=== PATIENT | female | born 1960 | race Caucasian/White ===

== ENCOUNTER 2018-03-07 05:42 | Inpatient (IN) | payer MEDICARE ==
[~2018-03-07] VITALS: Ht 165.1 cm; Wt 57.0 kg
[2018-03-07] VITALS (668 sets, daily range): BP systolic 128–139; BP diastolic 77–94; PULSE 87–93; TEMP 98.2–99.2; O2SAT 82–100
[2018-03-07 06:09] LABS: BASO % 0.5 % (0.0-2.0); GRAN # 3.3 (1.4-6.5); GRAN % 59.5 % (42.2-75.2); LYMPH # 1.6 (1.2-3.4); LYMPH % 29.2 % (20.0-51.0); MEAN CELL VOLUME 83 fl (80.0-100.0); MEAN CORPUSCULAR HGB CONC 30 g/dl (33.0-37.0); MEAN PLATELET VOLUME 10.3 fl (7.4-10.4); MONO # 0.6 (0.1-0.6); MONO % 10.4 % (1.7-9.3); PLATELET COUNT 165 K/mm3 (130-400); RED BLOOD COUNT 7.72 M/mm3 (4.10-5.30); REDCELL DISTRIBUTION WIDTH-CV 21.8 % (11.5-14.5)
[2018-03-07] MEDS ORDERED: COUMADIN 6MG6 MG/TAB PO (06:12)
[2018-03-07 06:13] LABS: HEMOGLOBIN 19.2 g/dl (12.5-16.0); MEAN CORPUSCULAR HEMOGLOBIN 25 pg (27.0-31.0)
[2018-03-07] MEDS ORDERED: LASIX 20MG TABL20 MG PO (06:13)
[2018-03-07] MEDS ORDERED: CYMBALTA 60MG60 MG PO (06:13)
[2018-03-07] MEDS ORDERED: PHENERGAN 25 TA25 MG PO (06:14)
[2018-03-07] MEDS ORDERED: CATAPRES0.2 MG PO (06:14)
[2018-03-07] MEDS ORDERED: NEURONTIN400 MG/CAP PO (06:15)
[2018-03-07] MEDS ORDERED: OXYCONTIN60 MG PO (06:16)
[2018-03-07] MEDS ORDERED: PERCOCET 325 MG1 TAB PO (06:16)
[2018-03-07] MEDS ORDERED: SOMA250 MG PO (06:17)
[2018-03-07 06:23] LABS: ALANINE AMINOTRANSFERASE 31 U/L (9-52); ALBUMIN 3.8 gm/dL (3.5-5.0); ALKALINE PHOSPHATASE 100 U/L (50-136); AST,SGOT 34 U/L (15-37); BILIRUBIN,TOTAL 1.4 mg/dL (0.0-1.0); BLOOD UREA NITROGEN 19 mg/dL (7-17); CALCIUM 9.1 mg/dL (8.4-10.2); CHLORIDE 95 mmol/L (98-107); CREATININE, serum 0.62 mg/dL (0.52-1.25); GLUCOSE 111 mg/dL (74-106); POTASSIUM 3.6 mmol/L (3.4-5.0); SODIUM 143 mmol/L (137-145); TOTAL PROTEIN 6.7 gm/dL (6.4-8.2)
[2018-03-07 06:26] LABS: ARTERIAL BLD GAS TCO2 CT 41
[2018-03-07 06:33] LABS: ANION GAP 5 mmol/L (7-16); CARBON DIOXIDE 43 mmol/L (22-30)
[2018-03-07 06:35] LABS: TROPONIN-I < 0.012 ng/mL (0.000-0.034)
[2018-03-07 06:43] LABS: INR 2.4 (0.8-3.0); PROTHROMBIN TIME 27.7 SECONDS (9.7-12.8)
[2018-03-07 07:16] LABS: THYROID STIMULATING HORMONE 0.984 uIU/mL (0.465-4.680)
[2018-03-07 16:28] LABS: ARTERIAL BLD GAS O2 SATURATION 85.2 % (92-100); ARTERIAL BLD GAS TCO2 CT 35.7; ARTERIAL BLOOD GAS HCO3 34.3 meq/L (22-26); ARTERIAL BLOOD GAS PCO2 43.5 mmHg (35-45); ARTERIAL BLOOD GAS pH 7.52 (7.35-7.45)
[2018-03-07 16:30] LABS: ARTERIAL BLOOD GAS PO2 46.6 mmHg (80-100)
[2018-03-07 17:08] LABS: CALCIUM 8.5 mg/dL (8.4-10.2); CREATININE, serum 0.49 mg/dL (0.52-1.25); MAGNESIUM 1.5 mg/dL (1.6-2.3); PHOSPHOROUS 3.3 mg/dL (2.5-4.5); POTASSIUM 3.2 mmol/L (3.4-5.0)
[2018-03-07] MEDS ORDERED: ZYRTEC5 MG PO (21:05)
[2018-03-08] VITALS (1005 sets, daily range): BP systolic 133–154; BP diastolic 83–105; PULSE 88–97; TEMP 98.2–99.2; O2SAT 80–97
[2018-03-08 05:31] LABS: ARTERIAL BLD GAS O2 SATURATION 88.6 % (92-100); ARTERIAL BLD GAS TCO2 CT 33.7; ARTERIAL BLOOD GAS BASE EXCESS 9.5 (-2-2); ARTERIAL BLOOD GAS HCO3 32.5 meq/L (22-26); ARTERIAL BLOOD GAS PCO2 38.1 mmHg (35-45); ARTERIAL BLOOD GAS PO2 50.7 mmHg (80-100); ARTERIAL BLOOD GAS pH 7.55 (7.35-7.45)
[2018-03-08 05:37] LABS: BASO % 0.2 % (0.0-2.0); GRAN # 4.1 (1.4-6.5); GRAN % 77.8 % (42.2-75.2); HEMATOCRIT 58.5 % (37.0-47.0); LYMPH # 0.8 (1.2-3.4); LYMPH % 15.5 % (20.0-51.0); MEAN CELL VOLUME 80 fl (80.0-100.0); MEAN CORPUSCULAR HEMOGLOBIN 25 pg (27.0-31.0); MEAN CORPUSCULAR HGB CONC 31 g/dl (33.0-37.0); MEAN PLATELET VOLUME 9.9 fl (7.4-10.4); MONO # 0.3 (0.1-0.6); MONO % 5.7 % (1.7-9.3); PLATELET COUNT 148 K/mm3 (130-400); REDCELL DISTRIBUTION WIDTH-CV 21.2 % (11.5-14.5)
[2018-03-08 05:49] LABS: ALBUMIN 3.3 gm/dL (3.5-5.0); BILIRUBIN,TOTAL 1.5 mg/dL (0.0-1.0); CALCIUM 8.9 mg/dL (8.4-10.2); CREATININE, serum 0.5 mg/dL (0.52-1.25); MAGNESIUM 1.9 mg/dL (1.6-2.3); PHOSPHOROUS 2.6 mg/dL (2.5-4.5); POTASSIUM 3.7 mmol/L (3.4-5.0); TOTAL PROTEIN 5.8 gm/dL (6.4-8.2)
[2018-03-08 05:54] LABS: INR 1.8 (0.8-3.0)
[2018-03-09] VITALS (296 sets, daily range): BP systolic 132–151; BP diastolic 68–102; PULSE 95–100; TEMP 98.3–99; O2SAT 90–98
[2018-03-09 05:53] LABS: BASO % 0.1 % (0.0-2.0); GRAN # 7.4 (1.4-6.5); GRAN % 88.4 % (42.2-75.2); LYMPH # 0.7 (1.2-3.4); LYMPH % 7.8 % (20.0-51.0); MEAN CELL VOLUME 80 fl (80.0-100.0); MEAN CORPUSCULAR HGB CONC 30 g/dl (33.0-37.0); MEAN PLATELET VOLUME 9.5 fl (7.4-10.4); MONO # 0.3 (0.1-0.6); PLATELET COUNT 155 K/mm3 (130-400); RED BLOOD COUNT 7.86 M/mm3 (4.10-5.30)
[2018-03-09 06:02] LABS: ARTERIAL BLD GAS O2 SATURATION 93.5 % (92-100); ARTERIAL BLD GAS TCO2 CT 27.6; ARTERIAL BLOOD GAS BASE EXCESS 3.6 (-2-2); ARTERIAL BLOOD GAS HCO3 26.5 meq/L (22-26); ARTERIAL BLOOD GAS PCO2 35.3 mmHg (35-45); ARTERIAL BLOOD GAS PO2 65.1 mmHg (80-100); ARTERIAL BLOOD GAS pH 7.49 (7.35-7.45)
[2018-03-09 06:14] LABS: HEMATOCRIT 62.6 % (37.0-47.0); MEAN CORPUSCULAR HEMOGLOBIN 24 pg (27.0-31.0)
[2018-03-09 06:17] LABS: CREATININE, serum 0.52 mg/dL (0.52-1.25); MAGNESIUM 1.9 mg/dL (1.6-2.3); PHOSPHOROUS 3.6 mg/dL (2.5-4.5); POTASSIUM 3.6 mmol/L (3.4-5.0)
[2018-03-10 01:33] VITALS: BP 129/85; PULSE 96; TEMP 98.5
[2018-03-10 05:34] VITALS: PULSE 90
[2018-03-10 06:10] LABS: BASO % 0.1 % (0.0-2.0); GRAN # 9.2 (1.4-6.5); GRAN % 86.7 % (42.2-75.2); LYMPH # 0.8 (1.2-3.4); LYMPH % 7.6 % (20.0-51.0); MEAN CELL VOLUME 80 fl (80.0-100.0); MEAN CORPUSCULAR HGB CONC 31 g/dl (33.0-37.0); MEAN PLATELET VOLUME 9.8 fl (7.4-10.4); MONO # 0.5 (0.1-0.6); PLATELET COUNT 156 K/mm3 (130-400); RED BLOOD COUNT 8.43 M/mm3 (4.10-5.30); REDCELL DISTRIBUTION WIDTH-CV 22.2 % (11.5-14.5)
[2018-03-10 06:14] LABS: HEMOGLOBIN 20.8 g/dl (12.5-16.0); MEAN CORPUSCULAR HEMOGLOBIN 25 pg (27.0-31.0)
[2018-03-10 06:29] LABS: CREATININE, serum 0.52 mg/dL (0.52-1.25); PHOSPHOROUS 3.9 mg/dL (2.5-4.5); POTASSIUM 3.5 mmol/L (3.4-5.0)
[2018-03-10 07:00] VITALS: BP 135/91; PULSE 90; TEMP 97.8
[2018-03-10 09:29] LABS: INR 1.3 (0.8-3.0); PROTHROMBIN TIME 15.1 SECONDS (9.7-12.8)
[2018-03-10] MEDS ORDERED: ASPIRIN 81M81 MG/TA2 PO (10:14)
[2018-03-10 11:11] VITALS: BP 141/93; PULSE 100; TEMP 97.6
[2018-03-10 11:42] LABS: ARTERIAL BLD GAS O2 SATURATION 93.5 % (92-100); ARTERIAL BLD GAS TCO2 CT 26.2; ARTERIAL BLOOD GAS BASE EXCESS 1.3 (-2-2); ARTERIAL BLOOD GAS PCO2 37.6 mmHg (35-45); ARTERIAL BLOOD GAS PO2 66.1 mmHg (80-100); ARTERIAL BLOOD GAS pH 7.44 (7.35-7.45)
[2018-03-10 15:16] VITALS: BP 132/88; PULSE 91; TEMP 98.6
[2018-03-10 19:26] VITALS: BP 139/93; PULSE 93; TEMP 99.3
[2018-03-11 00:23] VITALS: BP 133/78; PULSE 96; TEMP 98.1
[2018-03-11 03:29] VITALS: BP 133/86; PULSE 92; TEMP 98
[2018-03-11 04:59] VITALS: BP 153/94; PULSE 94; TEMP 97.4
[2018-03-11 05:29] LABS: ARTERIAL BLD GAS O2 SATURATION 91.9 % (92-100); ARTERIAL BLD GAS TCO2 CT 25.4; ARTERIAL BLOOD GAS BASE EXCESS 0.1 (-2-2); ARTERIAL BLOOD GAS HCO3 24.2 meq/L (22-26); ARTERIAL BLOOD GAS PCO2 38.3 mmHg (35-45); ARTERIAL BLOOD GAS PO2 60.7 mmHg (80-100); ARTERIAL BLOOD GAS pH 7.42 (7.35-7.45)
[2018-03-11 05:37] LABS: BASO % 0.1 % (0.0-2.0); GRAN # 9.5 (1.4-6.5); GRAN % 86.4 % (42.2-75.2); LYMPH # 0.7 (1.2-3.4); LYMPH % 6.4 % (20.0-51.0); MEAN CELL VOLUME 81 fl (80.0-100.0); MEAN CORPUSCULAR HGB CONC 30 g/dl (33.0-37.0); MEAN PLATELET VOLUME 9.2 fl (7.4-10.4); MONO # 0.7 (0.1-0.6); MONO % 6.6 % (1.7-9.3); PLATELET COUNT 144 K/mm3 (130-400); RED BLOOD COUNT 8.34 M/mm3 (4.10-5.30); REDCELL DISTRIBUTION WIDTH-CV 22.1 % (11.5-14.5)
[2018-03-11 05:41] LABS: HEMATOCRIT 67.4 % (37.0-47.0); HEMOGLOBIN 20.3 g/dl (12.5-16.0); MEAN CORPUSCULAR HEMOGLOBIN 24 pg (27.0-31.0)
[2018-03-11 05:52] LABS: CALCIUM 8.9 mg/dL (8.4-10.2); CREATININE, serum 0.55 mg/dL (0.52-1.25); MAGNESIUM 2.2 mg/dL (1.6-2.3); PHOSPHOROUS 3.9 mg/dL (2.5-4.5); POTASSIUM 4.2 mmol/L (3.4-5.0)
[2018-03-11 05:58] LABS: INR 1.5 (0.8-3.0); PROTHROMBIN TIME 17.1 SECONDS (9.7-12.8)
[2018-03-11 07:47] VITALS: BP 123/85; PULSE 95; TEMP 98.4
[2018-03-11] MEDS ORDERED: PREDNISONE20 MG PO (08:40)
[2018-03-11] MEDS ORDERED: OMNICEF 300MG300 MG PO (08:45)
== END 2018-03-11 11:39 | disposition home or self-care (01) | DRG 189 ==
LOC: COL.ER 05:42 → ICU 07:17 → MEDICAL 03-09 12:08 → ICU 03-09 12:08 → MEDICAL 03-09 12:15
PROVIDERS: Emergency Medicine; Internal Medicine; Internal Medicine Pulmonary Disease; Physician Assistant
PROC: 02HV33Z Insertion of Infusion Device into Superior Vena Cava, Percutaneous Approach (ICD-10-PCS; principal; 2018-03-08)
DX: J96.21 Acute and chronic respiratory failure with hypoxia (principal); G93.41 Metabolic encephalopathy; J44.1 Chronic obstructive pulmonary disease with (acute) exacerbation; I50.32 Chronic diastolic (congestive) heart failure; E87.4 Mixed disorder of acid-base balance; Z66 Do not resuscitate; J96.22 Acute and chronic respiratory failure with hypercapnia; F17.210 Nicotine dependence, cigarettes, uncomplicated; Z86.718 Personal history of other venous thrombosis and embolism; Z79.01 Long term (current) use of anticoagulants; D75.1 Secondary polycythemia; I11.0 Hypertensive heart disease with heart failure; M54.9 Dorsalgia, unspecified; G89.29 Other chronic pain; E87.6 Hypokalemia; E83.42 Hypomagnesemia; I27.23 Pulmonary hypertension due to lung diseases and hypoxia
CPT/HCPCS: 99223-AI; 99232-AI; 99239; A4216; C1751; J0456; J0696; J1120; J1170; J1650; J1885; J2060; J2930; J3010; J3475; J3480; J7030; J7050; J7512